=== PATIENT | female | born 1970 | race Caucasian/White ===

== ENCOUNTER → 2017-03-30 | Outpatient (CLI) | payer OTHER | LOC: RAD 10:06 | PROVIDERS: ATTEND Nurse Practitioner | DX: Z12.31 Encounter for screening mammogram for malignant neoplasm of breast (principal); Z98.82 Breast implant status ==

== ENCOUNTER → 2017-06-28 | Outpatient (CLI) | payer OTHER | LOC: RAD 11:22 | PROVIDERS: ATTEND Nurse Practitioner | DX: Z12.31 Encounter for screening mammogram for malignant neoplasm of breast (principal) | CPT/HCPCS: 77067 ==

== ENCOUNTER 2018-01-06 14:45 | Emergency (ER) | payer OTHER ==
[~2018-01-06] VITALS: Ht 175.3 cm; Wt 65.8 kg
[2018-01-06] MEDS ORDERED: NF-SOLIF5T (15:04)
[2018-01-06] MEDS ORDERED: CYCL10TA9 (15:04)
--- NOTE | 2018-01-06 15:40 | ED Back Pain ---
General Chief Complaint: Back Problems Stated Complaint: LOWER BACK PAIN Nursing Triage Note: C/O CHRONIC BACK PAIN WORSE LAST SEVERAL DAYS. Nursing Sepsis Screen: No Definite Risk Source of Information: Patient Exam Limitations: No Limitations History of Present Illness Date Seen by Provider: Jan 06, 2018 Time Seen by Provider: 15:36 Initial Comments The patient is a 47-year-old white female who presents with a chief complaint of back pain. She reports that she has had low back pain for many years. This goes back to a series of injury suffered while in the [employer]. She has been seen at the [facility] for this and took a course of physical therapy ending about 2 months ago. The only medication she uses at home is Excedrin. Yesterday she had a major effort at housecleaning including vacuuming and wet mopping. This morning she could scarcely get out of bed. The pain is worse today on the left side but has been at various times either sided Timing/Duration: 4-6 Hours Pain/Injury Location: Back Allergies and Home Medications Allergies Coded Allergies: No Known Drug Allergies (Unverified , 01/06/18) Patient Home Medication List Home Medication List Reviewed: Yes Constitutional: see HPI EENTM: no symptoms reported Respiratory: no symptoms reported Cardiovascular: no symptoms reported Gastrointestinal: no symptoms reported Genitourinary: no symptoms reported Musculoskeletal: no symptoms reported Skin: no symptoms reported Psychiatric/Neurological: No Symptoms Reported Past Vnxbdbj-Vcamdc-Ouxzpi Hx Patient Social History Alcohol Use: Denies Use Recreational Drug Use: No Smoking Status: Current Everyday Smoker Recent Foreign Travel: No Contact w/Someone Who Travel: No Recent Infectious Disease Expo: No Past Medical History Surgeries: Yes Section Respiratory: No Cardiac: No Neurological: No Genitourinary: No Gastrointestinal: No Musculoskeletal: Yes Chronic Back Pain Endocrine: No HEENT: No Cancer: No Psychosocial: No Integumentary: No Physical Exam Vital Signs Vital Signs - First Documented 01/06/18 14:49 Temp 96.3 Pulse 58 Resp 18 B/P (MAP) 135/93 (107) Pulse Ox 100 O2 Delivery Room Air Capillary Refill : Less Than 3 Seconds Height, Weight, BMI Height: 5'9.00" Weight: 145lbs. oz. 65.889338ax; BMI Method:Stated General Appearance: Mild Distress, Moderate Distress HEENT: Normal ENT Inspection Neck: Normal Inspection Cardiovascular: Regular Rate, Rhythm, No Edema, No Gallop, No JVD, No Murmur, Normal Peripheral Pulses Respiratory: Chest Non Tender, Lungs Clear, Normal Breath Sounds, No Accessory Muscle Use, No Respiratory Distress, Accessory Muscle Use Gastrointestinal: Normal Bowel Sounds, No Organomegaly, No Pulsatile Mass, Non Tender, Soft Extremity: Normal Capillary Refill, Normal Inspection, Normal Range of Motion, Non Tender, No Calf Tenderness, No Pedal Edema, Calf Tenderness Neurologic/Psychiatric: Alert, Oriented x3, No Motor/Sensory Deficits, Normal 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, 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 Norm as Tested, Abnormal Cerebellar Tests Skin: Other (scars over both lower legs right greater than left as evidence of habitual itching and scratching) Progress/Results/Core Measures Results/Orders My Orders Orders - ANGEL FELIX MD Ketorolac Injection (Toradol Injection) (01/06/18 15:45) Methylprednisolone Sod Succ (Solu-Medrol (01/06/18 15:45) Medications Given in ED Current Medications Medications Dose Ordered Sig/Campos Route Start Time Stop Time Status Last Admin Dose Admin Ketorolac Tromethamine 60 mg ONCE ONCE IM 01/06/18 15:45 01/06/18 15:46 DC 01/06/18 15:52 60 MG Methylprednisolone Sodium Succinate 125 mg ONCE ONCE IM 01/06/18 15:45 01/06/18 15:46 DC 01/06/18 15:52 125 MG Vital Signs/I&O 01/06/18 14:49 Temp 96.3 Pulse 58 Resp 18 B/P (MAP) 135/93 (107) Pulse Ox 100 O2 Delivery Room Air Blood Pressure Mean: 107 Departure Impression Primary Impression: Acute exacerbation of chronic low back pain Additional Impression: acute on chronic low back pain Disposition: 01 HOME, SELF-CARE Condition: Stable/Unchanged Departure-Patient Inst. Decision time for Depature: 16:06 Referrals: NO,LOCAL PHYSICIAN (PCP) Primary Care Physician Patient Instructions: MANAGING YOUR CHRONIC PAIN Add. Discharge Instructions: All discharge instructions reviewed with patient and/or family. Voiced understanding. Apply heat to area several times a day. Prednisone as directed. Ibuprofen as directed. Make arrangements to see your provider soon. Scripts Ibuprofen (Ibuprofen) 600 Mg Tablet 600 MG PO Q6H PRN for PAIN, #60 TAB Prov: ANGEL FELIX MD 01/06/18 Prednisone (Prednisone) 20 Mg Tab 20 MG PO as directed, #10 TAB 2 tabs daily each a.m. 3 days then 1 tab daily each a.m. for 4 days Prov: ANGEL FELIX MD 01/06/18 ANGEL FELIX MD Jan 06, 2018 15:40
[2018-01-06] MEDS ORDERED: methylPREDNISolone 125 MG (Solu-MEDROL) VIAL IM ONE (15:45)
[2018-01-06] MEDS ORDERED: KETOROLAC 60 MG/2 ML VIAL IM ONE (15:45)
[2018-01-06] MEDS ORDERED: IBUP-1773 PO (16:11)
[2018-01-06] MEDS ORDERED: PRD20T PO (16:11)
[2018-01-06 16:15] VITALS: BP 137/82
== END 2018-01-06 16:15 | disposition home or self-care (01) ==
LOC: EDUNIT# 14:45 → ER 14:47
DX: M54.5 Low back pain (principal); G89.29 Other chronic pain; F17.200 Nicotine dependence, unspecified, uncomplicated; Z87.59 Personal history of other complications of pregnancy, childbirth and the puerperium
CPT/HCPCS: 96372; 99284

== ENCOUNTER 2018-06-07 09:42 | Emergency (ER) | payer OTHER ==
[~2018-06-07] VITALS: Ht 175.3 cm; Wt 44.5 kg
[~2018-06-07 09:42] MED LIST: CYCL10TA9; IBUP-1773 PO; NF-SOLIF5T; PRD20T PO
--- OUTSIDE RECORDS SUMMARY | 2018-06-07 09:47 | XMS REPORT | Continuity of Care Document ---
Author Author [facility] Address Unknown Phone Unavailable Allergies Active Description Code Type Severity Reaction Onset Reported/Identified Relationship to Patient Clinical Status Yes No Known Drug Allergies [id number] Drug Allergy Unknown N/A 01/06/2018 Medications There is no data. Problems Date Dx Coded Attending Type Code Diagnosis Diagnosed By 05/10/2016 F F43.10 Post- traumatic stress disorder, unspecified Carmen Mayo 06/23/2017 YESENIA WASHBURNP Ot Z12.31 ENCNTR SCREEN MAMMOGRAM FOR MALIGNANT NE 06/23/2017 YESENIA WASHBURNP Ot Z98.82 BREAST IMPLANT STATUS 06/28/2017 YESENIA WASHBURNP Ot Z12.31 ENCNTR SCREEN MAMMOGRAM FOR MALIGNANT NE 06/28/2017 YESENIA WASHBURN RESIDENTIAL REMODELING SUBCONTRACTOR Ot Z98.82 BREAST IMPLANT STATUS 06/28/2017 YESENIA WASHBURN RESIDENTIAL REMODELING SUBCONTRACTOR Ot Z12.31 ENCNTR SCREEN MAMMOGRAM FOR MALIGNANT NE 06/28/2017 YESENIA WASHBURN RESIDENTIAL REMODELING SUBCONTRACTOR Ot Z98.82 BREAST IMPLANT STATUS 06/29/2017 YESENIA WASHBURNP Ot Z12.31 ENCNTR SCREEN MAMMOGRAM FOR MALIGNANT NE 09/27/2017 YESENIA WASHBURNP Ot Z12.31 ENCNTR SCREEN MAMMOGRAM FOR MALIGNANT NE 09/27/2017 YESENIA WASHBURN RESIDENTIAL REMODELING SUBCONTRACTOR Ot Z98.82 BREAST IMPLANT STATUS 09/27/2017 YESENIA WASHBURNP Ot Z12.31 ENCNTR SCREEN MAMMOGRAM FOR MALIGNANT NE 09/27/2017 YESENIA WASHBURNP Ot Z12.31 ENCNTR SCREEN MAMMOGRAM FOR MALIGNANT NE 02/15/2018 YESENIA WASHBURNP Ot Z12.31 ENCNTR SCREEN MAMMOGRAM FOR MALIGNANT NE Procedures There is no data. Results There is no data. Encounters ACCT No. Visit Date/Time Discharge Status Pt. Type Provider Facility Loc./Unit Complaint [id number] 02/24/2016 11:47:39 02/24/2016 23:59:00 [facility] [id number] 06/28/2017 11:22:00 06/28/2017 23:59:59 CLS Outpatient YESENIA WASHBURN Via [facility] RAD SCREENING [id number] 03/30/2017 10:06:00 03/30/2017 23:59:59 CLS Outpatient YESENIA WASHBURN Via [facility] RAD SCREENING [id number] 05/10/2016 08:00:00 05/10/2016 23:59:59 CLS Outpatient
--- NOTE | 2018-06-07 10:10 | Diagnostic Imaging Report ---
INDICATION: Fall, bruising to distal left radius. TECHNIQUE: 3 views of the left wrist. COMPARISON: None FINDINGS: There is mild cortical irregularity and linear lucency at the lateral aspect of the distal left radius metaphysis. This may be chronic or due to the physeal scar, however given the immediately overlying moderate soft tissue edema, it is concerning for a nondisplaced fracture. Alignment otherwise appears normal. Joint spaces are preserved. No radiopaque foreign body is seen. IMPRESSION: Mild cortical irregularity and linear lucency at the distal left radius concerning for a nondisplaced fracture, with moderate overlying soft tissue edema. Dictated by: Dictated on workstation # [id number]
--- NOTE | 2018-06-07 10:21 | NUR ---
IN TALKING TO PT AT THIS TIME.
[2018-06-07] MEDS ORDERED: HYDROcodone/APAP 5 MG/325 MG (LORTAB) TAB PO STA (10:40)
--- NOTE | 2018-06-07 10:40 | ED Upper Extremity ---
General Chief Complaint: Upper Extremity Stated Complaint: LT WRIST INJ Nursing Triage Note: FELL SKATING LAST NIGHT HURTING LEFT WRIST. Nursing Sepsis Screen: No Definite Risk Source: patient Exam Limitations: no limitations History of Present Illness Date Seen by Provider: Jun 07, 2018 Time Seen by Provider: 10:00 Initial Comments Here with report of left wrist pain after falling at the skating rink last night. Does have bruising on the thumb side of the wrist. Pain with movement of the wrist. Denies other injury. Onset: yesterday Severity: moderate Pain/Injury Location: left wrist Method of Injury: fell Modifying Factors: Improves With Immobilization; Worse With Movement; Improves With Rest Allergies and Home Medications Allergies Coded Allergies: No Known Drug Allergies (Unverified , 01/06/18) Home Medications Ibuprofen 600 Mg Tablet, 600 MG PO Q6H PRN for PAIN Prescribed by: ANGEL FELIX on 01/06/18 1611 Patient Home Medication List Home Medication List Reviewed: Yes Review of Systems Constitutional: see HPI; No chills, No fever Respiratory: no symptoms reported Cardiovascular: no symptoms reported Musculoskeletal: see HPI, joint pain, joint swelling, muscle pain Skin: change in color; No lesions Past Xbxmihq-Chavsr-Chabwd Hx Past Med/Social Hx: Reviewed Nursing Past Med/Soc Hx Patient Social History Alcohol Use: Denies Use Recreational Drug Use: Yes Drug of Choice: POT Smoking Status: Current Everyday Smoker Recent Foreign Travel: No Contact w/Someone Who Travel: No Recent Infectious Disease Expo: No Past Medical History Surgeries: Yes Section Respiratory: No Cardiac: No Neurological: No Genitourinary: No Gastrointestinal: No Musculoskeletal: Yes Chronic Back Pain Endocrine: No HEENT: No Cancer: No Psychosocial: Yes PTSD Integumentary: No Family Medical History Reviewed Nursing Family Hx Physical Exam Vital Signs Vital Signs - First Documented 06/07/18 09:46 Temp 98.0 Pulse 61 Resp 16 B/P (MAP) 147/83 (104) Pulse Ox 98 O2 Delivery Room Air Capillary Refill : Less Than 3 Seconds Height, Weight, BMI Height: 5'9.00" Weight: 98lbs. oz. 44.286020ne; BMI Method:Stated General Appearance: WD/WN, no apparent distress Cardiovascular: regular rate, rhythm, no murmur Respiratory: lungs clear, normal breath sounds Wrist: Yes bone tenderness, Yes ecchymosis, Yes limited ROM, Yes pain, Yes soft tissue tenderness, Yes swelling (all findings to the left wrist radial side with bruising noted on the volar aspect and radial side.) Neurologic/Tendon: normal sensation, normal motor functions, normal tendon functions Neurologic/Psychiatric: alert, oriented x 3 Skin: warm/dry, ecchymosis (as described above.) Progress/Results/Core Measures Results/Orders My Orders Orders - KEN COLE MD Wrist, Left, 3 Views Or More (06/07/18 09:50) Vital Signs/I&O 06/07/18 09:46 Temp 98.0 Pulse 61 Resp 16 B/P (MAP) 147/83 (104) Pulse Ox 98 O2 Delivery Room Air Blood Pressure Mean: 104 Progress Progress Note : Progress Note X-ray left wrist. Velcro splint placed to the left wrist with thumb restraint. X-ray noted. Hydrocodone 5/325 one tab by mouth given. Discharged home with return precautions. Patient verbalize understanding instructions and agreement with plan. Departure Impression Primary Impression: Fracture of radius Qualified Codes: S52.592A - Other fractures of lower end of left radius, initial encounter for closed fracture Additional Impression: Contusion of wrist Qualified Codes: S60.212A - Contusion of left wrist, initial encounter Disposition: 01 HOME, SELF-CARE Condition: Improved Departure-Patient Inst. Decision time for Depature: 10:42 Referrals: FAROOQ DIEHL MD NO,LOCAL PHYSICIAN (PCP) Primary Care Physician ROSA MARIA FLORENCE MICHAEL P MD Patient Instructions: Wrist Fracture (DC), Contusion (DC) Add. Discharge Instructions: All discharge instructions reviewed with patient and/or family. Voiced understanding. Continue medications as previously prescribed. You may take Tylenol/ acetaminophen 1000 mg every 6 hours as needed for pain if you're not taking her headache medicine. Call and follow up with one of the orthopedists listed or of your choosing. Use ice packs to area of concern 20 minutes per hour as needed to reduce swelling. Elevate wrist. Use splint at all times. Return for worse pain, swelling, weakness, numbness or other concerns as needed. KEN COLE MD Jun 07, 2018 10:40
[2018-06-07 10:50] VITALS: BP 147/83
== END 2018-06-07 10:50 | disposition home or self-care (01) ==
LOC: EDUNIT# 09:42 → ER 09:43
DX: S52.592A Other fractures of lower end of left radius, initial encounter for closed fracture (principal); F43.10 Post-traumatic stress disorder, unspecified; F12.10 Cannabis abuse, uncomplicated; F17.200 Nicotine dependence, unspecified, uncomplicated; Z98.890 Other specified postprocedural states; V00.131A Fall from skateboard, initial encounter; Y93.51 Activity, roller skating (inline) and skateboarding
CPT/HCPCS: 73110

== ENCOUNTER → 2018-08-23 | Outpatient (CLI) | payer OTHER ==
--- NOTE | 2018-08-23 18:48 | Diagnostic Imaging Report ---
INDICATION: Routine screening. COMPARISON is made with prior mammograms from 06/28/2017 and 03/19/2016. 2-D and 3-D bilateral screening mammography was performed with CAD. FINDINGS: Bilateral subpectoral breast implants are again noted. Implant contours remain smooth. Scattered fibroglandular densities are identified bilaterally. The parenchymal pattern is stable. No mass or malignant-appearing microcalcifications are seen. The axillae are unremarkable. IMPRESSION: BI-RADS category 2 No mammographic features suspicious for malignancy are identified. ACR BI-RADS Category 2: Benign findings. Result letter will be mailed to the patient. Note: At least 10% of breast cancer is not imaged by mammography. Dictated by: Dictated on workstation # [id number]
== END ==
LOC: RAD 14:26
PROVIDERS: ATTEND Nurse Practitioner
DX: Z12.31 Encounter for screening mammogram for malignant neoplasm of breast (principal)
CPT/HCPCS: 77067

== ENCOUNTER 2018-08-30 15:35 | Outpatient (RCR) | payer OTHER | END 2018-09-22 15:13 | disposition home or self-care (01) | PROVIDERS: ATTEND Nurse Practitioner | DX: S52.592D Other fractures of lower end of left radius, subsequent encounter for closed fracture with routine healing (principal) ==

== ENCOUNTER 2018-11-03 14:39 | Emergency (ER) | payer OTHER ==
[~2018-11-03] VITALS: Ht 175.3 cm; Wt 61.2 kg
--- OUTSIDE RECORDS SUMMARY | 2018-11-03 14:43 | XMS REPORT | Continuity of Care Document ---
Author Organization Unknown Address Unknown Allergies Active Description Code Type Severity Reaction Onset Reported/Identified Relationship to Patient Clinical Status Yes No Known Drug Allergies [id number] Drug Allergy Unknown N/A 01/06/2018 Medications There is no data. Problems Date Dx Coded Attending Type Code Diagnosis Diagnosed By 05/06/1512 RENA LEE GRINDER SET UP OPERATOR INTERNAL Ot S52.592D OTH FX OF LOWER END LEFT RAD, SUBS FOR C 05/10/2016 F F43.10 Post-traumatic stress disorder, unspecified Gael Carmen 06/23/2017 YESENIA WASHBURNP Ot Z12.31 ENCNTR SCREEN MAMMOGRAM FOR MALIGNANT NE 06/23/2017 YESENIA WASHBURNP Ot Z98.82 BREAST IMPLANT STATUS 06/28/2017 YESENIA WASHBURNP Ot Z12.31 ENCNTR SCREEN MAMMOGRAM FOR MALIGNANT NE 06/28/2017 YESENIA WASHBURNP Ot Z98.82 BREAST IMPLANT STATUS 06/28/2017 YESENIA WASHBURNP Ot Z12.31 ENCNTR SCREEN MAMMOGRAM FOR MALIGNANT NE 06/28/2017 YESENIA WASHBURNP Ot Z98.82 BREAST IMPLANT STATUS 06/29/2017 YESENIA WASHBURNP Ot Z12.31 ENCNTR SCREEN MAMMOGRAM FOR MALIGNANT NE 09/27/2017 YESENIA WASHBURNP Ot Z12.31 ENCNTR SCREEN MAMMOGRAM FOR MALIGNANT NE 09/27/2017 YESENIA WASHBURN GRINDER SET UP OPERATOR INTERNAL Ot Z98.82 BREAST IMPLANT STATUS 09/27/2017 YESENIA WASHBURNP Ot Z12.31 ENCNTR SCREEN MAMMOGRAM FOR MALIGNANT NE 09/27/2017 YESENIA WASHBURNP Ot Z12.31 ENCNTR SCREEN MAMMOGRAM FOR MALIGNANT NE 01/06/2018 Ot F17.200 NICOTINE DEPENDENCE, UNSPECIFIED, UNCOMP 01/06/2018 Ot G89.29 OTHER CHRONIC PAIN 01/06/2018 Ot M54.5 LOW BACK PAIN 01/06/2018 Ot Z87.59 PERSONAL HISTORY OF COMP OF PREG, CHLDBR 02/15/2018 YESENIA WASHBURN BRANDON Ot Z12.31 ENCNTR SCREEN MAMMOGRAM FOR MALIGNANT NE 06/07/2018 KEN COLE MD Ot F12.10 CANNABIS ABUSE, UNCOMPLICATED 06/07/2018 KEN COLE MD Ot F17.200 NICOTINE DEPENDENCE, UNSPECIFIED, UNCOMP 06/07/2018 KEN COLE MD Ot F43.10 POST-TRAUMATIC STRESS DISORDER, UNSPECIF 06/07/2018 KEN COLE MD Ot M25.532 PAIN IN LEFT WRIST 06/07/2018 KEN COLE MD Ot S52.592A OTH FRACTURES OF LOWER END OF LEFT RADIU 06/07/2018 KEN COLE MD Ot V00.131A FALL FROM SKATEBOARD, INITIAL ENCOUNTER 06/07/2018 KEN COLE MD Ot Y93.51 ACTIVITY, ROLLER SKATING (INLINE) AND SK 06/07/2018 KEN COLE MD Ot Z98.890 OTHER SPECIFIED POSTPROCEDURAL STATES 06/09/2018 KEN COLE MD Ot F12.10 CANNABIS ABUSE, UNCOMPLICATED 06/09/2018 KEN COLE MD Ot F17.200 NICOTINE DEPENDENCE, UNSPECIFIED, UNCOMP 06/09/2018 KEN COLE MD Ot F43.10 POST-TRAUMATIC STRESS DISORDER, UNSPECIF 06/09/2018 KEN COLE MD Ot M25.532 PAIN IN LEFT WRIST 06/09/2018 KEN COLE MD Ot S52.592A OTH FRACTURES OF LOWER END OF LEFT RADIU 06/09/2018 KEN COLE MD Ot V00.131A FALL FROM SKATEBOARD, INITIAL ENCOUNTER 06/09/2018 KEN COLE MD Ot Y93.51 ACTIVITY, ROLLER SKATING (INLINE) AND SK 06/09/2018 KEN COLE MD Ot Z98.890 OTHER SPECIFIED POSTPROCEDURAL STATES 08/09/2018 RENA LEE Ot S52.592D OTH FX OF LOWER END LEFT RAD, SUBS FOR C 08/10/2018 SONJA LEESIERRA TAYLOR Ot S52.592D OTH FX OF LOWER END LEFT RAD, SUBS FOR C 08/23/2018 SONJA LEESIERRA TAYLOR Ot S52.592D OTH FX OF LOWER END LEFT RAD, SUBS FOR C 08/29/2018 [facility] YESENIA TAYLOR Ot Z12.31 ENCNTR SCREEN MAMMOGRAM FOR MALIGNANT NE 09/11/2018 [facility] YESENIA BRANDON Ot Z12.31 ENCNTR SCREEN MAMMOGRAM FOR MALIGNANT NE 09/11/2018 RENA LEE [place] GRINDER SET UP OPERATOR INTERNAL Ot S52.592D OTH FX OF LOWER END LEFT RAD, SUBS FOR C Procedures There is no data. Results There is no data. Encounters ACCT No. Visit Date/Time Discharge Status Pt. Type Provider Facility Loc./Unit Complaint [id number] 02/24/2016 11:47:39 02/24/2016 23:59:00 [facility] X[facility] [id number] 08/30/2018 15:35:00 09/22/2018 15:13:00 DIS Outpatient RENA LEE Via [facility] REHAB FX LT WRIST [id number] 08/23/2018 14:26:00 08/23/2018 23:59:59 CLS Outpatient YESENIA WASHBURN Via [facility] RAD SCREENING [id number] 06/07/2018 09:43:00 06/07/2018 10:50:00 DIS Emergency KEN COLE MD Via [facility] ER LT WRIST INJ [id number] 06/28/2017 11:22:00 06/28/2017 23:59:59 CLS Outpatient YESENIA WASHBURN Via [facility] RAD SCREENING [id number] 03/30/2017 10:06:00 03/30/2017 23:59:59 CLS Outpatient YESENIA WASHBURN Via [facility] RAD SCREENING [id number] 01/06/2018 14:47:00 Document Registration [id number] 05/10/2016 08:00:00 05/10/2016 23:59:59 CLS Outpatient
--- NOTE | 2018-11-03 15:00 | ED General ---
General Chief Complaint: General Problems/Pain Stated Complaint: SEVER LOWER BACK PAIN;R KNEE PAIN Nursing Triage Note: Pt ambulatory to triage. Pt reports having chronic back and R knee pain. Pt reports "tackling a dog" last night and twisted body causing inner R knee pain, lower L back pain and L wrist pain. Pt reports pain is worse with movement. Nursing Sepsis Screen: No Definite Risk Source of Information: Patient Exam Limitations: No Limitations History of Present Illness Date Seen by Provider: November 03, 2018 Time Seen by Provider: 14:58 Initial Comments To ER per private vehicle who reports of chronic back pain on the left of midline lumbar spine. This is been ongoing for several years, she's never had any imaging, she is scheduled to see the [facility] for this. Yesterday she tackled a [place] dog and exacerbated this chronic left lower back pain, created some new right anteromedial knee pain and worsened the dorsal left wrist pain that she's had since a fracture in June of this year at the left left distal radius Timing/Duration: 12-24 Hours Severity: Moderate Allergies and Home Medications Allergies Coded Allergies: prazosin (Verified Allergy, Unknown, 11/03/18) Home Medications Ibuprofen 600 Mg Tablet, 600 MG PO Q6H PRN for PAIN Prescribed by: ANGEL FELIX on 01/06/18 1611 Patient Home Medication List Home Medication List Reviewed: Yes Review of Systems Review of Systems Constitutional: see HPI EENTM: see HPI Respiratory: no symptoms reported Cardiovascular: no symptoms reported Genitourinary: no symptoms reported Musculoskeletal: see HPI Skin: no symptoms reported Psychiatric/Neurological: No Symptoms Reported Hematologic/Lymphatic: No Symptoms Reported Past Quwkbqn-Pbllgm-Ijqkmw Hx Patient Social History Alcohol Use: Denies Use Recreational Drug Use: No Drug of Choice: POT Smoking Status: Current Everyday Smoker Type Used: Cigarettes 2nd Hand Smoke Exposure: Yes Recent Foreign Travel: No Contact w/Someone Who Travel: No Recent Infectious Disease Expo: No Past Medical History Surgeries: Yes Section Respiratory: No Cardiac: No Neurological: No Genitourinary: No Gastrointestinal: No Musculoskeletal: Yes Chronic Back Pain Endocrine: No HEENT: No Cancer: No Psychosocial: Yes PTSD Integumentary: No Physical Exam Vital Signs Vital Signs - First Documented 11/03/18 14:40 Temp 96.0 Pulse 62 Resp 18 B/P (MAP) 113/69 (84) Pulse Ox 98 O2 Delivery Room Air Capillary Refill : Less Than 3 Seconds Height, Weight, BMI Height: 5'9.00" Weight: 135lbs. oz. 61.499716me; BMI Method:Stated General Appearance: No Apparent Distress, WD/WN Eyes: Bilateral Eye Normal Inspection Neck: Full Range of Motion, Normal Inspection Respiratory: No Accessory Muscle Use, No Respiratory Distress Gastrointestinal: Non Tender, Soft Back: Normal Inspection Extremity: Normal Capillary Refill, Normal Inspection Neurologic/Psychiatric: Alert, Oriented x3 Skin: Normal Color, Warm/Dry Progress/Results/Core Measures Suspected Sepsis Recent Fever Within 48 Hours: No Infection Criteria Present: None New/Unexplained Altered Menta: No Sepsis Screen: No Definite Risk SIRS Temperature:96.0 Pulse: 62 Respiratory Rate: 18 Blood Pressure 113 /69 Mean: 84 Results/Orders My Orders Orders - MISTY KAY APRN Wrist, Left, 2 Views (11/03/18 14:57) Lumbar Spine - 2-3 Views (11/03/18 14:57) Knee, Right, 3 Views (11/03/18 14:57) Vital Signs/I&O Capillary Refill : Less Than 3 Seconds Blood Pressure Mean: 84 Departure Impression Primary Impression: Internal derangement of right knee Additional Impressions: Acute exacerbation of chronic low back pain Left wrist sprain Disposition: 01 HOME, SELF-CARE Condition: Stable Departure-Patient Inst. Decision time for Depature: 15:49 Referrals: NO,LOCAL PHYSICIAN (PCP) Primary Care Physician YESENIA WASHBURN (Family) Primary Care Physician Patient Instructions: Internal Derangement of the Knee, Low Back Pain (DC), Wrist Sprain (DC) Add. Discharge Instructions: [facility]. [facility]. This is most likely a knee sprain but if the symptoms persist beyond a few weeks, we should consider other diagnoses such as a meniscus tear which would be evaluated with an MRI of the knee. Tylenol and ibuprofen are fine for pain control. Return to ER for any concerns or worsening symptoms All discharge instructions reviewed with patient and/or family. Voiced understanding. MISTY KAY APRN November 03, 2018 15:00
--- NOTE | 2018-11-03 15:44 | Diagnostic Imaging Report ---
Indication: Right knee pain. Time of exam: 3:24 PM Three views of the right knee were obtained. Alignment is normal. Joint spaces are well maintained. The articular surfaces are smooth. No fracture, dislocation or effusion is seen. Impression: No acute bony abnormality is detected. Dictated by: Dictated on workstation # [id number]
--- NOTE | 2018-11-03 15:45 | Diagnostic Imaging Report ---
Indication: Back pain and injury. Time of exam: 3:23 p.m. Three views of the lumbar spine were obtained. There is minimal retrolisthesis of L2 on L3. Vertebral body heights are maintained. No acute compression fracture detected. There is some generalized degenerative disc disease, greatest at L5-S1 with disc space narrowing and marginal spurring. Impression: Lumbar spondylosis with minimal retrolisthesis L2 on L3. No acute bony abnormality is detected. Dictated by: Dictated on workstation # [id number]
--- NOTE | 2018-11-03 15:47 | Diagnostic Imaging Report ---
INDICATION: Left wrist pain and injury. TIME OF EXAM: 03:21 p.m. FINDINGS: Two views of the left wrist were obtained. Distal radius and ulna appear intact. Carpus and visualized metacarpals are intact. No fractures are seen. IMPRESSION: No acute bony abnormality is detected. Dictated by: Dictated on workstation # [id number]
[2018-11-03 15:54] VITALS: BP 113/69
== END 2018-11-03 15:54 | disposition home or self-care (01) ==
LOC: EDUNIT# 14:39 → ER 14:40
DX: S63.92XA Sprain of unspecified part of left wrist and hand, initial encounter (principal); M23.91 Unspecified internal derangement of right knee; M54.5 Low back pain; F43.10 Post-traumatic stress disorder, unspecified; G89.29 Other chronic pain; F17.210 Nicotine dependence, cigarettes, uncomplicated; Z88.8 Allergy status to other drugs, medicaments and biological substances; Z98.890 Other specified postprocedural states; X50.1XXA Overexertion from prolonged static or awkward postures, initial encounter
CPT/HCPCS: 72100; 73100; 73562

== ENCOUNTER → 2018-12-05 | Outpatient (CLI) | payer OTHER ==
--- NOTE | 2018-12-05 11:07 | Diagnostic Imaging Report ---
PROCEDURE: MRI lumbar spine. TECHNIQUE: Multiplanar, multisequence MRI of the lumbar spine was performed without contrast. INDICATION: Back pain. COMPARISON: No prior examinations are available for comparison. FINDINGS: The alignment of the lumbar spine is normal. Vertebral body heights are well-maintained. No spondylolysis or spondylolisthesis. No fractures are identified. Conus medullaris is seen at L1 and is normal in appearance. The T12-L1 disc is unremarkable. At L1-2, there is very minimal annular bulging however no spinal or neural foraminal encroachment. At L2-3, there is minimal annular bulging and mild facet disease. There is slight effacement of the ventral thecal sac. At L3-4, there is facet disease and thickening of the ligamentum flavum. There is minimal annular bulging. There is minimal central spinal stenosis. At L4-5, there is loss of disc height and signal intensity. There is broad-based annular bulging somewhat more prominent left greater than right. There is mild central spinal stenosis. There is minimal right and [id number] left neural foraminal encroachment. At L5-S1, there is loss of disc height and signal intensity. There are mild Modic changes in the endplates. There is broad-based annular bulging slightly more prominent in a left lateral distribution. There is some effacement of the ventral thecal sac. There is minimal right and moderate left neural foraminal encroachment. The abdominal aorta is nonaneurysmal. The kidneys are normal in appearance. IMPRESSION: Mild lumbar spondylosis and multilevel degenerative disc disease as described. Dictated by: Dictated on workstation # [id number]
== END ==
LOC: RAD 08:54
PROVIDERS: ATTEND Chiropractor
DX: M47.26 Other spondylosis with radiculopathy, lumbar region (principal); M51.16 Intervertebral disc disorders with radiculopathy, lumbar region
CPT/HCPCS: 72148

== ENCOUNTER 2019-03-02 08:27 | Outpatient (RCR) | payer OTHER | END 2019-03-02 08:58 | disposition home or self-care (01) | PROVIDERS: ATTEND Nurse Practitioner | DX: M25.512 Pain in left shoulder (principal) ==

== ENCOUNTER → 2019-12-26 | Outpatient (CLI) | payer OTHER ==
--- NOTE | 2019-12-26 14:31 | Diagnostic Imaging Report ---
INDICATION: Neck pain and numbness in the left arm. TIME OF EXAM: 2:13 PM. TECHNIQUE: Three views of the cervical spine were obtained. FINDINGS: There is some straightening and perhaps slight reversal of the normal cervical lordotic curvature. There are postop changes of C5 through T1 ACDF with anterior plate and screws. The hardware appears to be intact without fracture or loosening. There are some degenerative changes at the C3-C4 and C4-C5 levels with mild disc space narrowing and anterior osteophyte formation. The prevertebral tissues are normal. The odontoid is intact. IMPRESSION: C5 through T1 ACDF. No acute abnormality is detected. Dictated by: Dictated on workstation # [id number]
== END ==
LOC: RAD 13:46
PROVIDERS: ATTEND Neurological Surgery
DX: M54.2 Cervicalgia (principal); R20.0 Anesthesia of skin; Z98.1 Arthrodesis status
CPT/HCPCS: 72040

== ENCOUNTER → 2020-01-09 | Outpatient (CLI) | payer OTHER ==
--- NOTE | 2020-01-09 13:02 | Diagnostic Imaging Report ---
INDICATION: Routine screening. Comparison is made with prior mammograms from 08/23/2018 and 06/28/2017. 2-D and 3-D bilateral screening mammography was performed with CAD. Both breasts are heterogeneously dense, limiting the sensitivity of mammography. Bilateral subpectoral breast implants are again noted. Implant contours appear stable. Parenchymal pattern appears stable. No mass or malignant appearing microcalcifications are seen. Axillae are unremarkable. IMPRESSION: BI-RADS Category 2 No mammographic features suspicious for malignancy are identified. ACR BI-RADS Category 2: Benign findings. Result letter will be mailed to the patient. Note: At least 10% of breast cancer is not imaged by mammography. Dictated by: Dictated on workstation # [id number]
== END ==
LOC: RAD 11:05
PROVIDERS: ATTEND Nurse Practitioner
DX: Z12.31 Encounter for screening mammogram for malignant neoplasm of breast (principal)
CPT/HCPCS: 77063; 77067

== ENCOUNTER → 2020-01-10 | Outpatient (CLI) | payer OTHER ==
--- NOTE | 2020-01-10 12:04 | Diagnostic Imaging Report ---
PROCEDURE: US Gallbladder. TECHNIQUE: Multiple real-time grayscale images were obtained over the right upper quadrant in various projections. INDICATION: Abdominal pain. FINDINGS: The liver measures 13 cm in size. No discrete liver mass is detected. The portal vein is patent and shows normal direction of flow. Gallbladder is without stones or sludge. No wall thickening or biliary ductal dilatation is identified. The pancreas is unremarkable. Aorta is nonaneurysmal. IVC is patent. Right kidney is without calculi or hydronephrosis. There is no ascites. IMPRESSION: Unremarkable gallbladder ultrasound. Dictated by: Dictated on workstation # [id number]
== END ==
LOC: RAD 10:54
PROVIDERS: ATTEND Surgery
DX: K21.9 Gastro-esophageal reflux disease without esophagitis (principal); R10.13 Epigastric pain
CPT/HCPCS: 76705

== ENCOUNTER → 2020-01-11 | Outpatient (CLI) | payer OTHER ==
[~2020-01-11] MED LIST changes: +CATHETER FLUSH 10 ML SYR IV PRN
--- NOTE | 2020-01-11 13:18 | Diagnostic Imaging Report ---
INDICATION: Abdominal pain. TECHNIQUE: Patient was administered 5.1 mCi of technetium-99m Choletec intravenously and imaging of the abdomen was performed. At one hour, patient ingested 8 ounces of Ensure and gallbladder ejection fraction was calculated. Patient denied discomfort during the study. FINDINGS: There is homogeneous uptake of activity by the liver with prompt excretion of activity into the common duct and gallbladder. Normal passage of activity into the small bowel is identified. There is mild uptake in the left upper quadrant within the stomach consistent with gastric reflux. Gallbladder ejection fraction is normal at 59%. IMPRESSION: 1. Patent cystic duct and common bile duct. 2. Normal gallbladder ejection fraction of 59%. 3. Bile gastric reflux. Dictated by: Dictated on workstation # [id number]
== END ==
LOC: CARD 09:52
PROVIDERS: ATTEND Surgery
DX: K21.9 Gastro-esophageal reflux disease without esophagitis (principal)
CPT/HCPCS: 78227; A9537

== ENCOUNTER 2020-06-27 12:49 | Outpatient (RCR) | payer OTHER ==
[~2020-06-27 12:49] MED LIST changes: -CATHETER FLUSH 10 ML SYR IV PRN
== END 2020-07-23 | disposition home or self-care (01) ==
PROVIDERS: ATTEND Neurological Surgery
DX: M51.14 Intervertebral disc disorders with radiculopathy, thoracic region (principal); Z98.1 Arthrodesis status

== ENCOUNTER → 2021-04-07 | Outpatient (CLI) | payer OTHER ==
--- NOTE | 2021-04-08 13:04 | Diagnostic Imaging Report ---
INDICATION: Routine screening. COMPARISON: 01/09/2020 and 08/23/2018. TECHNIQUE: 2D and 3D bilateral screening mammography was performed with CAD. FINDINGS: The bilateral subpectoral breast implants are again noted. The implant contours appear smooth. Both breasts are heterogeneously dense, limiting the sensitivity of mammography. The parenchymal pattern is stable. No mass or malignant appearing microcalcifications are seen. The axillae are unremarkable. IMPRESSION: No mammographic features suspicious for malignancy are identified. ACR BI-RADS Category 2: Benign findings. Result letter will be mailed to the patient. Note: At least 10% of breast cancer is not imaged by mammography. Dictated by: Dictated on workstation # [id number]
== END ==
LOC: RAD 14:48
PROVIDERS: ATTEND Nurse Practitioner
DX: Z12.31 Encounter for screening mammogram for malignant neoplasm of breast (principal)
CPT/HCPCS: 77063; 77067

== ENCOUNTER → 2022-04-09 | Outpatient (CLI) | payer OTHER ==
[~2022-04-09] MED LIST changes: +CYCL10TA25; -CYCL10TA9
--- NOTE | 2022-04-10 09:10 | Diagnostic Imaging Report ---
INDICATION: Routine screening. Comparison is made with prior mammogram 04/07/2021 and 01/09/2020. 2-D and 3-D bilateral screening mammography was performed with CAD. Bilateral subpectoral breast implants are again noted. Implant contours remain smooth. Both breasts remain heterogeneously dense, limiting the sensitivity of mammography. The parenchymal pattern appears stable. No mass or malignant-appearing microcalcifications are seen. Axillae are unremarkable. IMPRESSION: No mammographic features suspicious for malignancy are identified. ACR BI-RADS Category 2: Benign findings. Result letter will be mailed to the patient. Note: At least 10% of breast cancer is not imaged by mammography. BI-RADS Category 2 Dictated by: Dictated on workstation # [id number]
== END ==
LOC: RAD 14:30
PROVIDERS: ATTEND Nurse Practitioner
DX: Z12.31 Encounter for screening mammogram for malignant neoplasm of breast (principal)
CPT/HCPCS: 77063; 77067

== ENCOUNTER 2022-05-21 11:14 | Emergency (ER) | payer OTHER ==
[~2022-05-21] VITALS: Ht 175 cm; Wt 62.5 kg
--- NOTE | 2022-05-21 14:20 | ED General ---
General Chief Complaint: Cough/Cold/Flu Symptoms Stated Complaint: COUGH | FEVER | CONGESTION Nursing Triage Note: PT STATES 2 PEOPLE IN HER HOUSE ARE + FOR FLU, SHE HAS BEEN SICK FOR 2 WEEKS, PAIN ON RT UPPER CHEST AND HARD TO BREATH, BODY ACHES Source of Information: Patient Exam Limitations: No Limitations History of Present Illness Date Seen by Provider: May 21, 2022 Time Seen by Provider: 13:45 Initial Comments Patient is a 52-year-old female who presents to the emergency department for evaluation of flu-like symptoms for the last 2 weeks. She states most of the symptoms have resolved other than persistent cough and right-sided chest pain with deep inspiration or cough. She states there was 2 separate people who recently tested positive for flu in her house. Denies any worsening chest pain with exertion. Denies any significant shortness of breath. States the cough is mostly nonproductive but she will intermittently have some thin sputum production. She was not tested for flu at any point during her illness. Allergies and Home Medications Allergies Coded Allergies: prazosin (Verified Allergy, Unknown, 11/03/18) Patient Home Medication List Home Medication List Reviewed: Yes Cyclobenzaprine HCl (Cyclobenzaprine HCl) 10 Mg Tablet, (Reported) Entered as Reported by: KAYA JEFF on 01/06/18 1504 Ibuprofen (Ibuprofen) 600 Mg Tablet, 600 MG PO Q6H PRN for PAIN Prescribed by: ANGEL FELIX on 01/06/18 1611 Solifenacin Succinate (Vesicare) 5 Mg Tablet, (Reported) Entered as Reported by: KAYA JEFF on 01/06/18 1504 Review of Systems Review of Systems Constitutional: see HPI, fever, malaise EENTM: no symptoms reported Respiratory: see HPI, cough Cardiovascular: see HPI, chest pain Gastrointestinal: no symptoms reported Genitourinary: no symptoms reported Musculoskeletal: no symptoms reported Skin: no symptoms reported Psychiatric/Neurological: No Symptoms Reported Hematologic/Lymphatic: No Symptoms Reported Past Isbkomy-Rqfoym-Cebbhz Hx Patient Social History Tobacco Use?: Yes Smoking Status: Former Smoker Substance use?: Yes Substance type: Marijuana Alcohol Use?: No Past Medical History Surgery/Hospitalization HX: C SECTION, BREAST IMPLANTS, NECK FUSION, PTSD Surgeries: Yes Section Respiratory: No Cardiac: No Neurological: No Genitourinary: No Gastrointestinal: No Musculoskeletal: Yes Chronic Back Pain Endocrine: No HEENT: No Cancer: No Psychosocial: Yes PTSD Integumentary: No Physical Exam Vital Signs Vital Signs - First Documented 05/21/22 11:36 Temp 37.1 Pulse 94 Resp 20 B/P (MAP) 110/72 (85) O2 Delivery Room Air Capillary Refill : Height, Weight, BMI Height: 5'9.00" Weight: 135lbs. oz. 61.237469lk; 20.00 BMI Method:Stated General Appearance: No Apparent Distress, WD/WN HEENT: PERRL/EOMI, TMs Normal, Normal ENT Inspection, Pharynx Normal Neck: Normal Inspection, Non Tender, Supple Respiratory: Chest Non Tender, Lungs Clear, Normal Breath Sounds, No Accessory Muscle Use, No Respiratory Distress Cardiovascular: Regular Rate, Rhythm Gastrointestinal: Non Tender, Soft Neurologic/Psychiatric: Oriented x3, No Motor/Sensory Deficits, Normal Mood/Affect, bottom turning lathe tender II-XII Norm as Tested Skin: Normal Color, Warm/Dry Progress/Results/Core Measures Suspected Sepsis SIRS Temperature: Pulse: 94 Respiratory Rate: 20 Blood Pressure 110 /72 Mean: 94 Results/Orders My Orders Orders - PRIMITIVO HALL APRN Chest Pa/Lat (2 View) (05/21/22 13:52) Vital Signs/I&O 05/21/22 05/21/22 11:36 13:46 Temp 37.1 35.8 Pulse 94 68 Resp 20 B/P (MAP) 110/72 (85) 125/79 (94) O2 Delivery Room Air Capillary Refill : Blood Pressure Mean: 94 Progress Note : Progress Note Patient is nontoxic and well-hydrated on exam. No adventitious lung sounds or increased work of breathing noted. Vital signs are reassuring without hypoxia. Chest x-ray acutely negative. No indication for further diagnostic testing at this time. Patient very likely had/has influenza given two separate people in her household tested positive. Patient will be treated with a course of NSAIDs. Follow-up with PCP. Return precautions for urgent symptomology discussed. Departure Impression Primary Impression: Influenza Additional Impression: Pleuritic chest pain Disposition: 01 HOME, SELF-CARE Condition: Stable Departure-Patient Inst. Decision time for Depature: 15:05 Referrals: YESENIA WASHBURN (PCP/Family) Primary Care Physician Patient Instructions: Pleuritic Chest Pain ED Scripts Ibuprofen (Ibuprofen) 600 Mg Tablet 600 MG PO Q6H PRN for PAIN-MILD for 7 Days, #28 TAB 0 Refills Prov: PRIMITIVO HALL APRN 05/21/22 PRIMITIVO HALL APRN May 21, 2022 14:20
--- NOTE | 2022-05-21 14:50 | Diagnostic Imaging Report ---
PATIENT HISTORY: chest pain, cough. TECHNIQUE: Two views of the chest. COMPARISON: None FINDINGS: The lung volumes are normal. No focal consolidation is seen. No large pleural effusion or pneumothorax is seen. The cardiomediastinal silhouette is normal in size and contour. No acute osseous abnormality is seen. IMPRESSION: No acute pulmonary abnormality seen. Dictated by: Dictated on workstation # [id number]
[2022-05-21] MEDS ORDERED: IBUP-1773 PO (15:08)
[2022-05-21 15:17] VITALS: BP 119/75
== END 2022-05-21 15:17 | disposition home or self-care (01) ==
LOC: EDUNIT# 11:14 → ER 11:16
DX: J11.1 Influenza due to unidentified influenza virus with other respiratory manifestations (principal); Z87.891 Personal history of nicotine dependence
CPT/HCPCS: 71046

== ENCOUNTER 2022-07-01 16:03 | Emergency (ER) | payer OTHER ==
--- NOTE | 2022-07-01 17:23 | Diagnostic Imaging Report ---
INDICATION: 52-year-old female injured in fall, presents with right-sided chest pain. COMPARISONS: 05/21/2022. FINDINGS: Single-view chest shows the cardiac contour to be normal. No consolidations are seen. There are some background chronic parenchymal changes present. There is no effusion or pneumothorax. Soft tissues and visualized bony thorax are grossly unremarkable. IMPRESSION: Chronic parenchymal changes but no acute cardiopulmonary disease. Visualized soft tissues and bony thorax are grossly unremarkable. Dictated by: Dictated on workstation # [id number]
--- NOTE | 2022-07-01 17:39 | Diagnostic Imaging Report ---
PROCEDURE: CT maxillofacial without contrast. TECHNIQUE: Multiple contiguous axial images were obtained through the facial bones without the use of intravenous contrast. Auto Exposure Controls were utilized during the CT exam to meet ALARA standards for radiation dose reduction. INDICATION: 52-year-old female injured in fall, hit face on 06/27/2022, presents with bruising around the nose area. COMPARISONS: None. FINDINGS: Axial images and sagittal and coronal reconstructions of the facial bones are provided. Beam hardening artifact from the dental fillings limits assessment. The mandible including the TMJs, mandibular condyles and body are intact. The maxilla is also grossly unremarkable. There is nasal septal deviation to the left. The nasal bones are symmetric. Orbits including both globes, retro-orbital extraconal, conal and intraconal spaces are normal. Zygomatic arches are symmetric. The maxillary sinuses are well pneumatized. The ostiomeatal complexes are patent. The ethmoid air cells and frontal sinuses are also well pneumatized. There is some mild sphenoid sinus disease. The hard palate is intact. The visualized cervical spine shows normal alignment. IMPRESSION: 1. Slight nasal septal deviation to the left. Otherwise, the nasal bones are symmetric with no evidence of acute fracture or subluxation seen. 2. There is sphenoid sinus disease. The remainder of the sinuses appear well pneumatized. 3. Orbits including retro-orbital extraconal, conal and intraconal spaces are normal. 4. Visualized cervical spine shows normal alignment. Dictated by: Dictated on workstation # [id number]
--- NOTE | 2022-07-01 18:04 | ED General ---
General Chief Complaint: Trauma-Non Activation Stated Complaint: FALL 06/27 NOSE PAIN Nursing Triage Note: PT AMB TO TRIAGE, PT STATES FELL ON WEDNESDAY, "FACE PLANTED" WHILE WALKING DOGS. PT HAS BRUISING NOTED ON FACE, NOSE AND CHIN. PT CO OF PAIN IN R CHEST AND R ARM PAIN WHEN MOVES OR TAKES A BREATH RATES 7/10. DENIES LOC. DENIES NECK PAIN Source of Information: Patient Exam Limitations: No Limitations History of Present Illness Date Seen by Provider: Jul 01, 2022 Time Seen by Provider: 16:55 Initial Comments Patient is a 52-year-old female who presents to the emergency department for evaluation of facial pain, nasal pain, and right chest pain that began on 06/27 when she fell while walking her dogs. Patient states she "face planted" and her face struck the concrete sidewalk. States the pain was initially relatively mild but has been persistent since that time. She states she is concerned she may have sustained some more serious injury and thus presents to the emergency department for further evaluation. Patient states the chest pain is worse when she moves her right arm or takes a deep breath. She denies any persistent nosebleed or difficulty breathing from her nose. Denies any dental trauma or malocclusion when she closes her mouth. Denies any other pain or injury at this time. She has not taken anything for the symptoms today. Allergies and Home Medications Allergies Coded Allergies: prazosin (Verified Allergy, Unknown, 11/03/18) Patient Home Medication List Home Medication List Reviewed: Yes Cyclobenzaprine HCl (Cyclobenzaprine HCl) 10 Mg Tablet, (Reported) Entered as Reported by: KAYA JEFF on 01/06/18 1504 Ibuprofen (Ibuprofen) 600 Mg Tablet, 600 MG PO Q6H PRN for PAIN Prescribed by: ANGEL FELIX on 01/06/18 1611 Ibuprofen (Ibuprofen) 600 Mg Tablet, 600 MG PO Q6H PRN for PAIN-MILD Prescribed by: Humza Jacobs on 05/21/22 1508 Ibuprofen (Ibuprofen) 600 Mg Tablet, 600 MG PO Q6H PRN for PAIN-MILD Prescribed by: Humza Jacobs on 07/01/22 1811 Solifenacin Succinate (Vesicare) 5 Mg Tablet, (Reported) Entered as Reported by: KAYA JEFF on 01/06/18 1504 Review of Systems Review of Systems Constitutional: no symptoms reported EENTM: no symptoms reported Respiratory: no symptoms reported Cardiovascular: no symptoms reported Gastrointestinal: no symptoms reported Genitourinary: no symptoms reported Musculoskeletal: no symptoms reported Skin: no symptoms reported Psychiatric/Neurological: No Symptoms Reported Hematologic/Lymphatic: No Symptoms Reported Immunological/Allergic: no symptoms reported Past Ltqtata-Bjvnop-Qzomcn Hx Patient Social History Tobacco Use?: No Substance use?: No Alcohol Use?: No Pt feels they are or have been: No Immunizations Up To Date Influenza Vaccine Up-to-Date: Yes; Up-to-Date First/Initial COVID19 Vaccinat: Y Second COVID19 Vaccination Sarkis: Y Third COVID19 Vaccination Date: Y Past Medical History Surgery/Hospitalization HX: C SECTION, BREAST IMPLANTS, NECK FUSION, PTSD Surgeries: Yes Section Respiratory: No Cardiac: No Neurological: No Genitourinary: No Gastrointestinal: No Musculoskeletal: Yes Chronic Back Pain Endocrine: No HEENT: No Cancer: No Psychosocial: Yes PTSD Integumentary: No Physical Exam Vital Signs Vital Signs - First Documented 07/01/22 16:05 Temp 36.7 Pulse 64 Resp 18 B/P (MAP) 127/81 (96) Pulse Ox 99 Capillary Refill : Less Than 3 Seconds Height, Weight, BMI Height: 5'9.00" Weight: 135lbs. oz. 61.661096aw; 20.00 BMI Method:Stated General Appearance: No Apparent Distress, WD/WN HEENT: PERRL/EOMI, TMs Normal, Pharynx Normal Neck: Full Range of Motion, Normal Inspection, Non Tender, Supple Respiratory: Chest Non Tender, Lungs Clear, Normal Breath Sounds, No Accessory Muscle Use, No Respiratory Distress Cardiovascular: Regular Rate, Rhythm Gastrointestinal: Non Tender, Soft Neurologic/Psychiatric: Alert, Oriented x3, No Motor/Sensory Deficits, Normal Mood/Affect Skin: Normal Color, Warm/Dry Comments Ecchymosis noted to the nose Progress/Results/Core Measures Suspected Sepsis SIRS Temperature: Pulse: 64 Respiratory Rate: 18 Blood Pressure 127 /81 Mean: 96 Results/Orders My Orders Orders - HUMZA JACOBS APRN Chest 1 View, Ap/Pa Only (07/01/22 16:48) Ct Maxillofacial Wo (07/01/22 16:48) Ibuprofen Tablet (Motrin Tablet) (07/01/22 18:15) Vital Signs/I&O 1/25/23 1/25/23 16:05 18:43 Temp 36.7 36.7 Pulse 64 64 Resp 18 16 B/P (MAP) 127/81 (96) 122/74 Pulse Ox 99 100 Capillary Refill : Less Than 3 Seconds Blood Pressure Mean: 96 Progress Note : Progress Note Patient is nontoxic and well-hydrated on exam. Vital signs are reassuring. Patient is awake alert and oriented answering questions appropriately. She am bulated the room without issue. No crepitus or step-off noted to the right anterior chest wall. No midface instability noted. Patient is able to fully open and close mouth without any obvious dental malocclusion. Orders placed for chest x-ray, CT of the facial bones, and an oral dose of ibuprofen. Chest x-ray is acutely negative for any osseous injuries or other concerning fin dings. CT of the face reveals no obvious fractures or other concerning findings. Patient did not request any additional analgesia outside of the ibuprofen. Discussed anticipatory guidance. Follow-up with PCP. Return precautions for urgent symptomology discussed. Patient verbalized understanding. Departure Impression Primary Impression: Facial contusion Qualified Codes: S00.83XA - Contusion of other part of head, initial encounter Additional Impression: Contusion of right chest wall Qualified Codes: S20.211A - Contusion of right front wall of thorax, initial encounter Disposition: 01 HOME, SELF-CARE Condition: Stable Departure-Patient Inst. Decision time for Depature: 18:05 Referrals: YESENIA WASHBURN (PCP/Family) Primary Care Physician Patient Instructions: Minor Head Injury, Minor Contusion ED Scripts Ibuprofen (Ibuprofen) 600 Mg Tablet 600 MG PO Q6H PRN for PAIN-MILD for 5 Days, #20 TAB 0 Refills Prov: HUMZA JACOBS APRN 07/01/22 HUMZA JACOBS APRN Jul 01, 2022 18:04
[2022-07-01] MEDS ORDERED: IBUP-1773 PO (18:11)
[2022-07-01] MEDS ORDERED: IBUPROFEN 600 MG (MOTRIN) TAB PO ONE (18:15)
[2022-07-01 18:43] VITALS: BP 122/74
== END 2022-07-01 18:43 | disposition home or self-care (01) ==
LOC: EDUNIT# 16:03 → ER 16:05
DX: S00.83XA Contusion of other part of head, initial encounter (principal); S20.211A Contusion of right front wall of thorax, initial encounter; W18.30XA Fall on same level, unspecified, initial encounter; W22.01XA Walked into wall, initial encounter; Y93.K1 Activity, walking an animal; Y92.480 Sidewalk as the place of occurrence of the external cause
CPT/HCPCS: 70486; 71045